=== PATIENT | female | born 1935 | race Caucasian/White ===

== ENCOUNTER 2021-07-14 21:08 | Emergency (ER) | payer BC, MEDICARE ==
[~2021-07-14] VITALS: Ht 165.1 cm; Wt 63.6 kg
[~2021-07-14 21:08] MED LIST: CARV3.12 PO; CLOP75TA34 PO; IRON150C13 PO; LISI-222 PO; METF500T PO; NATE60TA PO; PANT40SU2 PO
[2021-07-14 21:14] VITALS: BP 120/55
== END 2021-07-14 22:46 ==
LOC: ER 21:09
DX: S00.83XA Contusion of other part of head, initial encounter (principal); M25.552 Pain in left hip; M54.2 Cervicalgia; I10 Essential (primary) hypertension; Z60.2 Problems related to living alone; Z88.2 Allergy status to sulfonamides; Z79.899 Other long term (current) drug therapy; W19.XXXA Unspecified fall, initial encounter; Y93.89 Activity, other specified; Y92.89 Other specified places as the place of occurrence of the external cause; Y99.8 Other external cause status
CPT/HCPCS: 70450; 70486; 72125; 99285